=== PATIENT | female | born 1940 | race African-American/Black ===

== ENCOUNTER 2017-11-02 12:01 | Inpatient (IN) | payer OTHER ==
[~2017-11-02] VITALS: Ht 160 cm; Wt 75.3 kg
[2017-11-02] VITALS (9 sets, daily range): BP systolic 92–128; BP diastolic 40–78
[2017-11-02] MEDS ORDERED: Morphine Sulfate 2mg/ml Inj IVP ONE (12:30)
[2017-11-02 12:58] LABS: BASOPHILS % (AUTO) 1.7 % (0.0-2.0); EOSINOPHILS % (AUTO) 1.6 % (0.0-3.0); HEMATOCRIT 36.2 % (37.0-47.0); HEMOGLOBIN 12.2 G/DL (12.0-16.0); MEAN CORPUSCULAR VOLUME 97 FL (80-99); MONOCYTES % (AUTO) 9.1 % (1.0-10.0); NEUTROPHILS % (AUTO) 64.7 % (45.0-75.0); PLATELET COUNT 211 K/UL (150-450); RED BLOOD COUNT 3.73 M/UL (4.20-5.40); RED CELL DISTRIBUTION WIDTH 11.1 % (11.6-14.8); WHITE BLOOD COUNT 6.2 K/UL (4.8-10.8)
[2017-11-02 13:10] LABS: ANION GAP 6 mmol/L (5-15); BLOOD UREA NITROGEN 32 mg/dL (7-18); CALCIUM 9.9 MG/DL (8.5-10.1); CARBON DIOXIDE 30 MMOL/L (21-32); CHLORIDE 103 MMOL/L (98-107); CREATININE 1.3 MG/DL (0.55-1.30); POTASSIUM 3.9 MMOL/L (3.5-5.1); SODIUM 139 MMOL/L (136-145)
[2017-11-02 13:21] LABS: ALANINE AMINOTRANSFERASE 19 U/L (12-78); ALBUMIN 3.5 G/DL (3.4-5.0); ALKALINE PHOSPHATASE 71 U/L (46-116); ASPARTATE AMINO TRANSFERASE 17 U/L (15-37); BILIRUBIN,TOTAL 0.5 MG/DL (0.2-1.0); CREATINE KINASE 82 U/L (26-308)
[2017-11-02 13:54] LABS: APPEARANCE,URINE CLEAR; BILIRUBIN, URINE NEGATIVE (NEGATIVE); COLOR,URINE PALE YELLOW; GLUCOSE, URINE (UA) NEGATIVE (NEGATIVE); KETONES,URINE NEGATIVE (NEGATIVE); LEUKOCYTE ESTERASE ,URINE 1+ (NEGATIVE); NITRITE,URINE NEGATIVE (NEGATIVE); PH,URINE 6 (4.5-8.0); PROTEIN,URINE NEGATIVE (NEGATIVE); UROBILINOGEN,URINE NORMAL MG/DL (0.0-1.0)
[2017-11-02] MEDS ORDERED: FOLIC ACID1 MG ORAL (14:06)
[2017-11-02] MEDS ORDERED: TRADJENTA5 MG PO (14:06)
[2017-11-02] MEDS ORDERED: ASPIR 8181 MG ORAL (14:06)
[2017-11-02] MEDS ORDERED: FUROSEMIDE20 M1 ORAL (14:06)
[2017-11-02] MEDS ORDERED: METOPROLOL SUC100 MG ORAL (14:06)
[2017-11-02] MEDS ORDERED: BUPROPION XL150 MG ORAL (14:06)
--- NOTE | 2017-11-02 14:53 | Emergency Room Report ---
History of Present Illness General Chief Complaint: Chest Pain Source: Patient Present Illness HPI Patient presents with 3 days of chest pain and right upper quadrant pain. It's been variable. It takes her breath away also. She feels nausea with this. She 's never had pain like this before. She's not eating well. She denies any fevers or chills. She does have increasing weakness and she's not taking in much by mouth. There is no medication she's tried taking at home to help with the pain. Pain is rated 8/10, poorly characterized, somewhat pressure. Radiates from RUQ to LUQ. No vomiting or change in bowels. No fever, cough, sore throat. 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 She is taking Tradjenta for diabetes. 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 This has not necessitated treatment in the past. No headache, dizziness, rashes, joint pain, dysuria, anxiety. Allergies: Coded Allergies: No Known Allergies (Unverified , 11/02/17) Patient History Past Medical History: see triage record Social History: Denies: smoking, alcohol use, drug use Social History Narrative with daughter Reviewed Nursing Documentation: PMH: Agreed; PSxH: Agreed Nursing Documentation-PMH Past Medical History: No History, Except For Hx Cardiac Problems: No Hx Hypertension: Yes Hx Pacemaker: No Hx Asthma: No Hx COPD: No Hx Diabetes: Yes Hx Cancer: No Hx Gastrointestinal Problems: No Hx Dialysis: No History Of Psychiatric Problem: Yes - Depression Hx Neurological Problems: No Hx Cerebrovascular Accident: No Hx Seizures: No Review of Systems All Other Systems: negative except mentioned in HPI Physical Exam Vital Signs Date Time Temp Pulse Resp B/P (MAP) Pulse Ox O2 Delivery O2 Flow Rate FiO2 11/02/17 12:07 97.4 62 16 139/58 100 Room Air 97.3 Sp02 EP Interpretation: reviewed, normal General Appearance: no apparent distress, alert, other - Frail Head: normocephalic Eyes: bilateral eye PERRL, bilateral eye conjunctivae pale, bilateral eye other - arcus ENT: moist mucus membranes Neck: supple Respiratory: lungs clear, normal breath sounds Cardiovascular #1: regular rate, rhythm, no edema Cardiovascular #2: 2+ radial (R) Gastrointestinal: normal inspection, normal bowel sounds, no mass, non- distended, no guarding, no rebound, tenderness - RUQ Genitourinary: no CVA tenderness Musculoskeletal: back normal, normal range of motion Neurologic: alert, oriented x3, grossly normal Psychiatric: mood/affect normal Skin: normal inspection, warm/dry Medical Decision Making Diagnostic Impression: Primary Impression: Chest pain Qualified Codes: R07.9 - Chest pain, unspecified Additional Impressions: Right upper quadrant pain Atrial fibrillation with rapid ventricular response ER Course Patient presents with chest pain and right upper quadrant pain. This has been going on for 3 days. Differential includes acute myocardial infarction, acute coronary syndrome, cholecystitis, cholelithiasis him a pleurisy, peptic ulcer disease, pancreatitis, pneumonia amongst others. Evaluation will be with EKG, chest x-ray and labs. Ultrasound may be ordered. The patient will be treated here. Ekg without injury. CXR no infiltrates. Labs with nl WBC and CMP (sl high glucose). Elevated BNP (though CXR clear of CHF). Patient ultrasound was negative. The RN noted the patient started having tachycardia here. Patient doesn't feel any different. There is no more pain and she doesn't feel palpitations. She feels no dizziness. EKG reveals atrial fibrillation with a rapid ventricular response rate of 136 with a strain pattern laterally. The patient will be given diltiazem. Diltiazem given with me at bedside. Tolerated well with decrease in HR but still atrial fibrillation. EKG #3 - A fib, rate better, NSSTTW changes without ischemic changes. Admit to [facility]. Discussed with Dr. Johnson who contacted Dr. Moseley. Laboratory Tests Test 11/02/17 12:39 11/02/17 13:30 White Blood Count 6.2 K/UL (4.8-10.8) Red Blood Count 3.73 M/UL (4.20-5.40) L Hemoglobin 12.2 G/DL (12.0-16.0) Hematocrit 36.2 % (37.0-47.0) L Mean Corpuscular Volume 97 FL (80-99) Mean Corpuscular Hemoglobin 32.8 PG (27.0-31.0) H Mean Corpuscular Hemoglobin Concent 33.8 G/DL (32.0-36.0) Red Cell Distribution Width 11.1 % (11.6-14.8) L Platelet Count 211 K/UL (150-450) Mean Platelet Volume 7.9 FL (6.5-10.1) Neutrophils (%) (Auto) 64.7 % (45.0-75.0) Lymphocytes (%) (Auto) 23.0 % (20.0-45.0) Monocytes (%) (Auto) 9.1 % (1.0-10.0) Eosinophils (%) (Auto) 1.6 % (0.0-3.0) Basophils (%) (Auto) 1.7 % (0.0-2.0) Prothrombin Time 10.7 SEC (9.30-11.50) Prothrombin Time INR 1.0 (0.9-1.1) PTT 25 SEC (23-33) Sodium Level 139 MMOL/L (136-145) Potassium Level 3.9 MMOL/L (3.5-5.1) Chloride Level 103 MMOL/L (98-107) Carbon Dioxide Level 30 MMOL/L (21-32) Anion Gap 6 mmol/L (5-15) Blood Urea Nitrogen 32 mg/dL (7-18) H Creatinine 1.3 MG/DL (0.55-1.30) Estimate Glomerular Filtration Rate mL/min (>60) Glucose Level 124 MG/DL (74-106) H Calcium Level 9.9 MG/DL (8.5-10.1) Total Bilirubin 0.5 MG/DL (0.2-1.0) Aspartate Amino Transferase (AST) 17 U/L (15-37) Alanine Aminotransferase (ALT) 19 U/L (12-78) Alkaline Phosphatase 71 U/L (46-116) Total Creatine Kinase 82 U/L (26-308) Troponin I 0.003 ng/mL (0.000-0.056) Pro-B-Type Natriuretic Peptide 1245 pg/mL (0-125) H Total Protein 7.1 G/DL (6.4-8.2) Albumin 3.5 G/DL (3.4-5.0) Globulin 3.6 g/dL Albumin/Globulin Ratio 1.0 (1.0-2.7) Lipase 70 U/L (73-393) L Urine Color Pale yellow Urine Appearance Clear Urine pH 6 (4.5-8.0) Urine Specific [place] 1.010 (1.005-1.035) Urine Protein Negative (NEGATIVE) Urine Glucose (UA) Negative (NEGATIVE) Urine Ketones Negative (NEGATIVE) Urine Occult Blood Negative (NEGATIVE) Urine Nitrite Negative (NEGATIVE) Urine Bilirubin Negative (NEGATIVE) Urine Urobilinogen Normal MG/DL (0.0-1.0) Urine Leukocyte Esterase 1+ (NEGATIVE) H Urine RBC 0-2 /HPF (0 - 2) Urine WBC 2-4 /HPF (0 - 2) Urine Squamous Epithelial Cells Few /LPF (NONE/OCC) Urine Bacteria Occasional /HPF (NONE) EKG Diagnostic Results Rate: normal Rhythm: NSR ST Segments: no acute changes Other Impression EKG number to that 1540 is atrial fibrillation with rapid ventricular response. 136. Lateral strain pattern Rhythm Strip Diag. Results EP Interpretation: yes Rhythm: NSR, no PVC's, no ectopy Chest X-Ray Diagnostic Results Chest X-Ray Diagnostic Results : Chest X-Ray Ordered: Yes # of Views/Limited/Complete: 1 View Indication: Chest Pain Interpretation: no consolidation, no effusion, no pneumothorax CT/MRI/US Diagnostic Results CT/MRI/US Diagnostic Results : Imaging Test Ordered: Ultrasound abdomen Impression No gallbladder pathology, small right kidney Last Vital Signs Date Time Temp Pulse Resp B/P (MAP) Pulse Ox O2 Delivery O2 Flow Rate FiO2 11/02/17 18:19 98.0 80 17 107/53 100 Room Air 98.0 Status: improved Disposition: ADMITTED INPATIENT Condition: Serious Referrals: NON PHYSICIAN (PCP) Vinicius Moore M.D. Nov 02, 2017 14:53
[2017-11-02] MEDS ORDERED: dilTIAZem HCl 25mg/5ml Inj IVP ONE (16:00)
[2017-11-02] MEDS: BuPROPion XL 150mg tab ORAL SCH (16:00)
[2017-11-02] MEDS ORDERED: dilTIAZem HCl 25mg/5ml Inj ONE (16:08)
[2017-11-02] MEDS: NovoLOG Insulin Flexpen SUBQ SCH ×2 (16:30→21:00)
[2017-11-02] MEDS ORDERED: dilTIAZem HCl 50mg/10ml Inj IVP ONE (17:45)
[2017-11-02] MEDS ORDERED: dilTIAZem HCl 25mg/5ml Inj IVP SCH (18:15)
[2017-11-03] VITALS: BP 114/50
[2017-11-03 04:00] VITALS: BP 110/60
[2017-11-03] MEDS: NovoLOG Insulin Flexpen SUBQ SCH ×4 (06:30→21:00)
[2017-11-03] MEDS ORDERED: sitaGLIPtin 50mg tab ORAL SCH (06:30)
[2017-11-03 08:00] VITALS: BP 122/60
--- NOTE | 2017-11-03 08:28 | Diagnostic Imaging Report ---
Indication: Chest pain Technique: One view of the chest Comparison: none Findings: There is blunting of left costophrenic sulcus. The lungs pleural spaces are otherwise clear. The heart size is normal.. Impression: Tenting of the left costophrenic sulcus, could indicate atelectasis or trace pleural fluid. No acute process otherwise. This agrees with the preliminary interpretation provided by the emergency room physician
--- NOTE | 2017-11-03 08:36 | Diagnostic Imaging Report ---
Indication: Abdominal pain, abnormal renal function Technique: Pierre-scale and duplex images of the upper abdomen were obtained Comparison: none Findings: Gallbladder is unremarkable, without stones, wall thickening, nor pericholecystic fluid. Sonographic Lui's sign is negative. Common bile duct measures to mm in diameter. No intrahepatic biliary ductal dilatation. Liver demonstrates normal echogenicity, no focal abnormality. Portal vein and hepatic veins are patent. Pancreas is incompletely visualized due to overlying bowel gas, visualized portions are unremarkable. Spleen is unremarkable. Left kidney measures 9.8 cm in length. Right kidney measures 7.8 cm length. Both kidneys demonstrate normal echogenicity. There is no hydronephrosis. No focal abnormality . Non-aneurysmal abdominal aorta . Impression: Small right kidney. Etiology/significance uncertain. Unilateral renal atrophy does raise the possibility of renal artery stenosis, however. Otherwise unremarkable exam. Negative for gallstones or dilated ducts Note suboptimal visualization of the pancreas
[2017-11-03] MEDS ORDERED: TRADJENTA 5 MG ORAL SCH (09:00)
[2017-11-03] MEDS ORDERED: Aspirin EC 81mg tab ORAL SCH ×2 (09:00→09:30)
[2017-11-03] MEDS ORDERED: Metoprolol Succinate XL 100mg tab ORAL SCH (09:00)
[2017-11-03 10:07] LABS: CHOLESTEROL 260 MG/DL (< 200); HDL CHOLESTEROL 64 MG/DL (40-60); TRIGLYCERIDES 100 MG/DL (30-150)
[2017-11-03 12:00] VITALS: BP 130/83
[2017-11-03] MEDS ORDERED: Lexiscan 0.4mg/5ml syringe IV ONE (13:30)
[2017-11-03] MEDS ORDERED: Lisinopril 20mg tab ORAL ONE (13:45)
--- NOTE | 2017-11-03 13:45 | History and Physical Report ---
DATE OF ADMISSION: 11/02/2017 CHIEF COMPLAINT: Chest and abdominal pain. HISTORY OF PRESENT ILLNESS: The patient is a pleasant female. For the last several days, she has had intermittent episodes of chest pain and abdominal pain. The patient's symptoms had occurred at random times. They have not been associated with exercise. There have been no reports of any fevers or chills. No cough. No congestion. 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 She received a single dose of Cardizem and converted back to sinus rhythm. She is now admitted for further evaluation and care. PAST MEDICAL HISTORY: Significant for history of hypertension and diabetes. PAST SURGICAL HISTORY: None. CURRENT MEDICATIONS: Reconciled and reviewed. ALLERGIES: None. FAMILY HISTORY: None. SOCIAL HISTORY: Negative for tobacco, ethanol, or drugs. REVIEW OF SYSTEMS: Negative except for chest pain. PHYSICAL EXAMINATION: VITAL SIGNS: Temperature 97.8, pulse 67, respirations 18, and blood pressure 110/60. GENERAL: The patient is well-developed, no apparent distress. HEART: Regular rate and rhythm. LUNGS: Clear. ABDOMEN: Soft, nontender, and nondistended. EXTREMITIES: Without clubbing, cyanosis, or edema. LABORATORY AND DIAGNOSTIC DATA: Sodium 139 and potassium 3.9. Troponin 0.003. Natriuretic peptide level was 400. White count was 6, hemoglobin 12, hematocrit 36. INR was 1. Her EKG showed sinus rhythm without any acute ST or T-wave changes. Lipase was 70. ASSESSMENT: This is a pleasant female, who complains of chest pain and abdominal pain, likely to be cardiac in origin. She did have an episode of rapid AFib. It is possible some of her chest pain may be related to arrhythmia. PLAN: Serial enzymes and EKGs. Monitor on telemetry for recurrent atrial fibrillation. Cardiology consultation has been obtained. We will check a venous duplex of the lower extremities. Check an echo. Continue antiplatelet therapy. Andrey Johnson M.D. : JUANI/LEE JOB#: [id number] CC:
[2017-11-03 16:00] VITALS: BP 116/62
[2017-11-03] MEDS: BuPROPion XL 150mg tab ORAL SCH (18:05)
[2017-11-03 20:00] VITALS: BP 107/64
--- NOTE | 2017-11-03 20:57 | Cardiology Report ---
APPROVED REPORT EXAM: Two-dimensional and M-mode echocardiogram with Doppler and color Doppler. INDICATION CORONARY ARTERY DISEASE M-Mode DIMENSIONS IVSd1.5 (0.7-1.1cm)Left Atrium (MM)4.1 (1.6-4.0cm) LVDd5.1 (3.5-5.6cm)Aortic Root3.0 (2.0-3.7cm) PWd1.2 (0.7-1.1cm)Aortic Cusp Exc.2.0 (1.5-2.0cm) IVSs1.8 cm LVDs4.5 (2.5-4.0cm) PWs1.0 cm Normal left ventricular chamber size, systolic function and wall motion. Left ventricular ejection fraction estimated to be 55-60 %. Mild left ventricular hypertrophy by 2-D. Trace posterior pericardial effusion. Mild left atrial enlargements . Right cardiac chamber sizes are within normal limits. Focal aortic valve sclerosis with adequate cusp excursion. Heavily Thickened mitral valve leaflets with reduce excursion. Heavily Mitral annulus and aortic root calcification. Evidence of echogenic material on posterior mitral valve leaflet noted, cannot exclude for vegitation. Normal pulmonic valve structure. Normal tricuspid valve structure. IVC at normal size with physiologic collapse. A color flow and spectral Doppler study was performed and revealed: Mild aortic regurgitation. Moderate mitral regurgitation. Mitral diastolic velocities suggest reduced left ventricular relaxation c/w mild LV diastolic dysfunction (Grade I ). Moderate tricuspid regurgitation. Tricuspid systolic velocities suggests peak right ventricular systolic pressure of 62 mmHg, consistent with severe pulmonary hypertension. Trace pulmonic regurgitation present .
[2017-11-03] MEDS ORDERED: Atorvastatin 20mg tab ORAL SCH ×3 (21:00)
--- NOTE | 2017-11-03 21:22 | Cardiology Report ---
APPROVED REPORT EKG Measurement Heart [id number] Atrial fibrillation N[address]pecific ST abnormality Abnormal ECG
--- NOTE | 2017-11-03 21:23 | Cardiology Report ---
APPROVED REPORT EKG Measurement Heart [id number] ME 150P43 [id number] Normal sinus rhythm with sinus arrhythmia Normal ECG
--- NOTE | 2017-11-03 22:15 | Progress Note ---
DATE: 11/03/2017 CARDIOLOGY PROGRESS NOTE SUBJECTIVE: The patient has not had any recurring chest pain. She has remained in sinus rhythm since converting in the emergency room yesterday. She notes some abdominal discomfort after eating in the mid epigastric region. She has not had any cough or shortness of breath. OBJECTIVE: VITAL SIGNS: Blood pressure 130/83, pulse 63, respirations 18, and afebrile. LUNGS: Clear. CARDIAC: Regular. Normal S1, S2. ABDOMEN: Soft. EXTREMITIES: No edema. No focal tenderness. No CVA tenderness. IMPRESSION: 1. Paroxysmal atrial fibrillation. 2. Anginal episode occurred. 3. Possible acute coronary syndrome. 4. Hypertensive heart disease. 5. 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 PLAN: 1. Continue anti-platelet therapy. 2. Follow up lipid panel. 3. Myocardial perfusion scan for assessment of coronary flow reserve. 4. Readdress cardioembolic prophylaxis with full anticoagulation prior to discharge. 5. Maximize afterload reduction and antihypertensive therapy. Vinicius Moseley M.D. DR: TANK JOB#: [id number] CC:
--- NOTE | 2017-11-03 22:15 | Consultation ---
DATE OF CONSULTATION: 11/02/2017 CARDIOLOGY CONSULTATION CONSULTING PHYSICIAN: Vinicius Moseley M.D. REQUESTING PHYSICIAN: Andrey Johnson M.D. REASON FOR CONSULTATION: Chest pain and atrial fibrillation. HISTORY OF PRESENT ILLNESS: This is a 77-year-old female, who presented to the emergency room with progressive 3 days of ongoing and recurring chest pain as well as right upper abdominal quadrant pain, notes some association with oral intake is noted, some shortness of breath is associated as well as nausea, but no vomiting. The patient has had a poor appetite. She has been increasingly weak. Her oral intake has been poor. She has also noted palpitation. In the emergency room, she was noted to have rapid atrial fibrillation. She was given a dose of IV Cardizem. She subsequently converted spontaneously to sinus rhythm. PAST MEDICAL HISTORY: 1. Hypertension. 2. Type 2 diabetes mellitus. 3. Valvular heart disease. 4. Depression. MEDICATIONS: Prior to admission, reviewed and reconciled. SOCIAL HISTORY: Negative for smoking, alcohol, or substance abuse. FAMILY HISTORY: Noncontributory. REVIEW OF SYSTEMS: She notes that she had a prior cardiac workup per office over a year ago, may have been almost 3 years ago. She does not recall. She was told that she has leaking valve. She was not aware of any prior irregular heartbeats and does not think she ever had heart attack. There is no history of blood clots in the legs and there is no history of asthma, seizures or strokes. PHYSICAL EXAMINATION: GENERAL: The patient is well-developed and well-nourished, no acute distress. VITAL SIGNS: Blood pressure 139/58, pulse 62, and respiratory rate 16. HEENT: Normocephalic and atraumatic. Conjunctivae pink. Oropharynx clear. Mucous membranes moist. NECK: Supple. Jugular venous pressure normal. No bruits. LUNGS: Clear. CARDIAC: Regular rhythm and rate. Normal S1 and S2. There is 2/6 early systolic murmur at apex. ABDOMEN: Soft and nontender. EXTREMITIES: No edema. NEUROLOGIC: Nonfocal. LABORATORY AND DIAGNOSTIC DATA: EKG revealed atrial fibrillation with rapid ventricular response, nonspecific ST-T wave changes. Chest x-ray with no acute process. Labs are reviewed, notable for troponin of 0.003 and pro-natriuretic peptide of 1245. IMPRESSION: 1. Paroxysmal atrial fibrillation with rapid ventricular response, now spontaneously converted to sinus rhythm. 2. Acute on chronic diastolic congestive heart failure. 3. Valvular heart disease, clinically compensated. 4. Possible acute coronary syndrome. 5. Postprandial abdominal pain. PLAN: Cardiac monitoring. Anti-platelet therapy. Beta-blockade. Serial troponins. Echocardiogram. Titrate antihypertensive and anti-failure regimen. Consider further GI workup if no acute cardiovascular process noted. Check lipid panel. Vinicius Moseley M.D. DR: CLIFTON JOB#: [id number] CC:
[2017-11-04] VITALS: BP 115/65
[2017-11-04 04:00] VITALS: BP 134/88
[2017-11-04] MEDS: NovoLOG Insulin Flexpen SUBQ SCH ×3 (06:30→16:30)
[2017-11-04 08:00] VITALS: BP 115/49
[2017-11-04 08:21] LABS: ALANINE AMINOTRANSFERASE 19 U/L (12-78); ALBUMIN 3.1 G/DL (3.4-5.0); ALBUMIN/GLOBULIN RATIO 0.9 (1.0-2.7); ALKALINE PHOSPHATASE 65 U/L (46-116); ANION GAP 4 mmol/L (5-15); ASPARTATE AMINO TRANSFERASE 15 U/L (15-37); BILIRUBIN,TOTAL 0.4 MG/DL (0.2-1.0); BLOOD UREA NITROGEN 35 mg/dL (7-18); CALCIUM 9.2 MG/DL (8.5-10.1); CARBON DIOXIDE 30 MMOL/L (21-32); CHLORIDE 103 MMOL/L (98-107); CREATININE 1.3 MG/DL (0.55-1.30); POTASSIUM 4.1 MMOL/L (3.5-5.1); SODIUM 136 MMOL/L (136-145)
[2017-11-04] MEDS ORDERED: Aspirin EC 81mg tab ORAL SCH (09:00)
[2017-11-04] MEDS ORDERED: Metoprolol Succinate XL 100mg tab ORAL SCH (09:00)
[2017-11-04] MEDS ORDERED: Heparin 5000 units/ml inj SUBQ SCH (09:00)
[2017-11-04] MEDS ORDERED: Lisinopril 20mg tab ORAL SCH ×2 (09:00)
[2017-11-04 12:00] VITALS: BP 130/71
--- NOTE | 2017-11-04 14:54 | Cardiology Report ---
APPROVED REPORT EKG Measurement Heart [id number] VT 150P40 [id number] Sinus bradycardia with premature atrial complexes Otherwise normal ECG
--- NOTE | 2017-11-04 15:49 | Diagnostic Imaging Report ---
Indications: 77-year-old female with chest pain and hypertension Technique: Single day single isotope protocol utilized. Initially, resting images obtained using IV administration 9.8 millicuries 99M technetium Myoview. Subsequently, patient underwent lexiscan stress testing. See cardiology report for details. During Lexiscan infusion, IV administration 31.5 mCi 99 M technetium Myoview. SPECT and planar images obtained. SPECT images gated to 8 phases of the cardiac cycle were also obtained, and reformatted into cine images for evaluation of ejection fraction. Comparison: none Findings: Per cardiology report, patient experienced abnormal sensation in the legs. Per cardiology report, resting EKG demonstrates normal sinus rhythm. Presence or absence of EKG changes during infusion is not described in the cardiology report. Imaging demonstrates no fixed nor reversible post-rest perfusion defects. Normal left ventricular chamber size. Calculated post stress ejection fraction 81%. No focal wall motion abnormality Impression: Nonischemic clinical response to pharmacologic stress, per cardiology report Nonischemic electrocardiographic response to pharmacologic stress, per cardiology report No imaging findings to suggest ischemia, at level of stress achieved. Calculated post stress ejection fraction greater than 70%
[2017-11-04 16:00] VITALS: BP 131/50
[2017-11-04] MEDS ORDERED: BuPROPion XL 150mg tab ORAL SCH (16:00)
[2017-11-04] MEDS ORDERED: PROTONIX20 MG ORAL (16:15)
--- NOTE | 2017-11-05 01:45 | Progress Note ---
DATE: 11/04/2017 CARDIOLOGY PROGRESS NOTE SUBJECTIVE: The patient denies chest pain. She had a myocardial perfusion scan performed today with Lexiscan stress. The study revealed normal ejection fraction and no perfusion defects suggesting low likelihood for flow-limiting coronary artery disease. The patient has maintained sinus rhythm since admission. She has not had any recurring episodes of atrial fibrillation. OBJECTIVE: VITAL SIGNS: Blood pressure 130/71, heart rate 41 to 63, respiratory rate 18, and she is afebrile LUNGS: Clear. CARDIAC: Regular. Normal S1, S2. ABDOMEN: Soft. EXTREMITIES: No edema. IMPRESSION: 1. Anginal syndrome resolved. Normal myocardial perfusion scan suggesting low likelihood for flow-limiting coronary disease. 2. Paroxysmal atrial fibrillation, now in sinus rhythm. 3. Hypertension, controlled. 4. Sinus bradycardia, on beta-fidelia. PLAN: 1. Decrease dose of metoprolol. 2. Continued anti-platelet therapy. 3. Statin drug and other blood pressure regimen. 4. The patient has decided to consult with her primary managed services consultant before considering long-term anticoagulation for cardioembolic prophylaxis. Vinicius Moseley M.D. DR: TANK JOB#: [id number] CC:
--- NOTE | 2017-11-05 19:15 | Discharge Summary ---
Discharge Summary Discharge Summary Discharge Summary DATE OF ADMISSION: 11/02/2017 DATE OF DISCHARGE: 11/04/2017 CONSULTANTS: Dr. Vinicius Msoeley BRIEF HOSPITAL COURSE: Patient is a 77-year-old pleasant female, who for the last several days had intermittent episodes of chest pain and abdominal pain. Symptoms occurred at random, not exertional, no fever or chills, no cough no congestion. She has medical history significant for hypertension and diabetes. On evaluation at ED she was noted to be in atrial fibrillation with RVR. She was given diltiazem. Chest x-ray without infiltrates. Initial troponin was negative, proBNP was 1245. She was then admitted for cardiac evaluation. She was seen by housekeeping laundry worker. Patient has paroxysmal atrial fibrillation with RVR which spontaneously converted to sinus rhythm. She was continued on beta fidelia metoprolol and antiplatelet therapy. Echocardiogram showed ejection fraction of 55-60%. She had abdominal pain, in the mid epigastric area. Abdominal ultrasound showed a small right kidney, otherwise unremarkable. Negative for gallstones or dilated ducts. She had a myocardial perfusion scan. Study revealed normal ejection fraction and no perfusion defects suggesting low likelihood for flow-limiting coronary artery disease. She has maintained sinus rhythm since admission, with no recurring episodes of atrial fibrillation. Patient decided to consult with her primary housekeeping laundry worker before considering long-term anticoagulation for cardioembolic prophylaxis. She was discharged home. FINAL DIAGNOSES: Paroxysmal atrial fibrillation with RVR now in sinus rhythm. Anginal syndrome resolved. Hypertension Sinus bradycardia DISPOSITION: Patient was discharged home DISCHARGE MEDICATIONS: Refer to Discharge Medication List. DISCHARGE INSTRUCTIONS: Follow up with PCP in a week. I have been assigned to dictate discharge summary on this account, and I was not involved in the patient's management. Layla Noyola NP Nov 05, 2017 19:15
== END 2017-11-04 17:12 | disposition home or self-care (01) | DRG 308 ==
LOC: EMR 12:58 → EDBEDREQ 13:53 → 2E 14:15 → EDBEDREQSVC 16:25 → EDBEDREQ 16:25 → 2W 20:13 → 2E 11-03 19:30
DX: I48.0 Paroxysmal atrial fibrillation (principal); I50.33 Acute on chronic diastolic (congestive) heart failure; I24.9 Acute ischemic heart disease, unspecified; I11.0 Hypertensive heart disease with heart failure; I20.9 Angina pectoris, unspecified; R00.1 Bradycardia, unspecified; F32.9 Major depressive disorder, single episode, unspecified
CPT/HCPCS: 36415; 71045; 76700; 78452; 80053; 80061; 81003; 82550; 82962; 83690; 83735; 83880; 84443; 84484; 85025; 85610; 85730; 93005; 93017; 93306; J1815; J2405; J2785

== ENCOUNTER 2018-02-22 12:50 | Emergency (ER) | payer MEDICARE, OTHER ==
[~2018-02-22] VITALS: Ht 162.6 cm; Wt 73.9 kg
[~2018-02-22 12:50] MED LIST: ASPIR 8181 MG ORAL; BUPROPION XL150 MG ORAL; FOLIC ACID1 MG ORAL; FUROSEMIDE20 M1 ORAL; METOPROLOL SUC100 MG ORAL; PROTONIX20 MG ORAL; TRADJENTA5 MG PO
[2018-02-22 13:05] VITALS: BP 141/58
[2018-02-22] MEDS ORDERED: ACETAMINOPHEN-1 EAC1 ORAL (13:11)
[2018-02-22] MEDS ORDERED: REMERON15 M1 ORAL (13:11)
[2018-02-22] MEDS ORDERED: OMEPRAZOLE40 M1 ORAL (13:11)
[2018-02-22] MEDS ORDERED: TRADJENTA5 MG PO (13:11)
[2018-02-22] MEDS ORDERED: ATORVASTATIN CA20 MG ORAL (13:11)
--- NOTE | 2018-02-22 13:23 | Emergency Room Report ---
History of Present Illness General Chief Complaint: General Complaint Source: Patient Present Illness HPI Patient presents with complaints of pain in cramping to both of her legs Patient reports from mid thigh area down both feet ongoing for the past several days Patient is on diuretic including Lasix however cannot provide why she is on that medication Denies any chest pain or short of breath Patient also felt that there were some mild increased swelling to her ankles compared to usual denies any fall or trauma Denies any recent travel Denies any pleurisy Allergies: Coded Allergies: No Known Allergies (Unverified , 11/02/17) Patient History Past Medical History: see triage record Pertinent Family History: none Reviewed Nursing Documentation: PMH: Agreed; PSxH: Agreed Nursing Documentation-PMH Past Medical History: No History, Except For Hx Cardiac Problems: Yes Hx Hypertension: Yes Hx Pacemaker: No Hx Asthma: No Hx COPD: No Hx Diabetes: Yes Hx Cancer: No Hx Gastrointestinal Problems: No Hx Dialysis: No Hx Neurological Problems: No Hx Cerebrovascular Accident: No Hx Seizures: No Review of Systems All Other Systems: negative except mentioned in HPI Physical Exam Vital Signs Date Time Temp Pulse Resp B/P (MAP) Pulse Ox O2 Delivery O2 Flow Rate FiO2 02/22/18 12:59 98.5 65 15 141/58 95 Room Air 98.4 Sp02 EP Interpretation: reviewed, normal General Appearance: well appearing, no apparent distress Head: normocephalic, atraumatic Eyes: bilateral eye PERRL, bilateral eye EOMI ENT: hearing grossly normal, normal pharynx, TMs + canals normal, uvula midline Neck: full range of motion, supple, no meningismus, no bony tend Respiratory: lungs clear, normal breath sounds, no rhonchi, no respiratory distress, no retraction, no accessory muscle use Cardiovascular #1: normal peripheral pulses, regular rate, rhythm, no gallop, no JVD, no murmur Gastrointestinal: normal bowel sounds, non tender, soft, no mass, no organomegaly, non-distended, no guarding, no hernia, no pulsatile mass, no rebound Genitourinary: no CVA tenderness Musculoskeletal: normal inspection Neurologic: 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, 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, 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, motor strength/ tone normal, sensory intact Psychiatric: mood/affect normal Skin: palpation normal, other - Very mild dependent appearing edema in both ankles equally nonpitting Lymphatic: normal inspection, no adenopathy Medical Decision Making Diagnostic Impression: Primary Impression: Localized swelling of both lower legs ER Course Multiple differentials are considered including but not limited to congestive heart failure, venous insufficiency, kidney disease Patient's blood work is appropriate kidney function also normal Upon further discussion patient now reports that she has had this swelling problem off and on for over a year She reports that her primary physician is not doing much for the swelling At this time her exam does not show any consistency with DVT Given the baseline blood work which is appropriate patient is recommended to increase her Lasix to once a day instead of once every other day for the next several days potassium remains appropriate patient stable for close follow-up , Labs Test 02/22/18 13:30 White Blood Count 6.3 K/UL (4.8-10.8) Red Blood Count 3.68 M/UL (4.20-5.40) Hemoglobin 11.5 G/DL (12.0-16.0) Hematocrit 35.8 % (37.0-47.0) Mean Corpuscular Volume 97 FL (80-99) Mean Corpuscular Hemoglobin 31.3 PG (27.0-31.0) Mean Corpuscular Hemoglobin Concent 32.1 G/DL (32.0-36.0) Red Cell Distribution Width 12.7 % (11.6-14.8) Platelet Count 162 K/UL (150-450) Mean Platelet Volume 7.2 FL (6.5-10.1) Neutrophils (%) (Auto) 53.3 % (45.0-75.0) Lymphocytes (%) (Auto) 30.3 % (20.0-45.0) Monocytes (%) (Auto) 10.2 % (1.0-10.0) Eosinophils (%) (Auto) 4.8 % (0.0-3.0) Basophils (%) (Auto) 1.5 % (0.0-2.0) Sodium Level 142 MMOL/L (136-145) Potassium Level 4.1 MMOL/L (3.5-5.1) Chloride Level 109 MMOL/L (98-107) Carbon Dioxide Level 26 MMOL/L (21-32) Anion Gap 7 mmol/L (5-15) Blood Urea Nitrogen 29 mg/dL (7-18) Creatinine 1.2 MG/DL (0.55-1.30) Estimat Glomerular Filtration Rate mL/min (>60) Glucose Level 154 MG/DL (74-106) Calcium Level 8.8 MG/DL (8.5-10.1) Rhythm Strip Diag. Results EP Interpretation: yes Rate: 84 Rhythm: NSR, no PVC's, no ectopy Last Vital Signs Date Time Temp Pulse Resp B/P (MAP) Pulse Ox O2 Delivery O2 Flow Rate FiO2 02/22/18 13:05 98.4 65 15 141/58 95 Room Air 98.4 Status: improved Disposition: HOME, SELF-CARE Condition: Stable Scripts Gabapentin* (NEURONTIN*) 100 Mg Capsule 100 MG ORAL THREE TIMES A DAY, #15 CAP 0 Refills Prov: German Sprague DO 02/22/18 Additional Instructions: Patient is provided with the discharge instructions notified to follow up with primary doctor in the next 2-3 days otherwise return to the er with any worsening symptoms. Please note that this report is being documented using [employer] technology. This can lead to erroneous entry secondary to incorrect interpretation by the dictating instrument. German Sprague DO Feb 22, 2018 13:23
[2018-02-22 13:40] LABS: BASOPHILS % (AUTO) 1.5 % (0.0-2.0); EOSINOPHILS % (AUTO) 4.8 % (0.0-3.0); HEMATOCRIT 35.8 % (37.0-47.0); HEMOGLOBIN 11.5 G/DL (12.0-16.0); LYMPHOCYTES % (AUTO) 30.3 % (20.0-45.0); MEAN CORPUSCULAR VOLUME 97 FL (80-99); MONOCYTES % (AUTO) 10.2 % (1.0-10.0); NEUTROPHILS % (AUTO) 53.3 % (45.0-75.0); PLATELET COUNT 162 K/UL (150-450); RED BLOOD COUNT 3.68 M/UL (4.20-5.40); RED CELL DISTRIBUTION WIDTH 12.7 % (11.6-14.8); WHITE BLOOD COUNT 6.3 K/UL (4.8-10.8)
[2018-02-22 13:51] LABS: ANION GAP 7 mmol/L (5-15); BLOOD UREA NITROGEN 29 mg/dL (7-18); CALCIUM 8.8 MG/DL (8.5-10.1); CARBON DIOXIDE 26 MMOL/L (21-32); CHLORIDE 109 MMOL/L (98-107); CREATININE 1.2 MG/DL (0.55-1.30); POTASSIUM 4.1 MMOL/L (3.5-5.1); SODIUM 142 MMOL/L (136-145)
[2018-02-22] MEDS ORDERED: NEURONTIN100 MG ORAL (14:40)
[2018-02-22 14:47] VITALS: BP 124/76
== END 2018-02-22 14:49 | disposition home or self-care (01) ==
LOC: EMR 13:28
DX: M79.89 Other specified soft tissue disorders (principal); M79.605 Pain in left leg; M79.604 Pain in right leg; E11.9 Type 2 diabetes mellitus without complications; I10 Essential (primary) hypertension
CPT/HCPCS: 36415; 80048; 85025; 99283